=== PATIENT | female | born 1940 | race Caucasian/White ===

== ENCOUNTER → 2016-09-26 | Outpatient (CLI) | payer BC ==
[~2016-09-26] MED LIST: ASPI325T6 PO; ASPIRIN 81M81 MG/TA2 PO; CELEBREX 200MG200 MG PO; GLUCOPHAGE XR500 M1 PO; LIPITOR20 MG PO; NORCO 325 MG-7.1 TAB PO; NORVASC 5MG5 MG/TAB PO; PREMPRO 0.3 MG-1 TAB PO; PRILOSEC 20MG20 MG PO; PRINZIDE 25 MG-1 TAB PO; ROXICODONE 55 MG/TAB PO; SENOKOT S 50 MG1 TAB PO; TIMOPTIC 0.25%-10 OU
== END ==
LOC: SUN.DIA 13:19
DX: E11.65 Type 2 diabetes mellitus with hyperglycemia (principal); Z68.26 Body mass index [BMI] 26.0-26.9, adult; Z71.3 Dietary counseling and surveillance; E78.5 Hyperlipidemia, unspecified; I10 Essential (primary) hypertension

== ENCOUNTER → 2016-10-06 | Outpatient (CLI) | payer BC | LOC: MC.RAD 09:32 | DX: Z12.31 Encounter for screening mammogram for malignant neoplasm of breast (principal); Z80.3 Family history of malignant neoplasm of breast ==

== ENCOUNTER → 2016-12-20 | Outpatient (CLI) | payer BC | LOC: COL.RAD 11:09 | DX: M25.551 Pain in right hip (principal) | CPT/HCPCS: J3301; Q9967 ==

== ENCOUNTER 2017-02-27 15:17 | Inpatient (IN) | payer BC, MEDICARE ==
[~2017-02-27 15:17] MED LIST changes: -ASPI325T6 PO; -NORCO 325 MG-7.1 TAB PO; -ROXICODONE 55 MG/TAB PO; -SENOKOT S 50 MG1 TAB PO
[2017-03-27] VITALS (12 sets, daily range): BP systolic 111–160; BP diastolic 55–77; PULSE 65–95; TEMP 97.7–98.4
[2017-03-28] VITALS: BP 128/61; PULSE 82; TEMP 98.4
[2017-03-28 04:00] VITALS: BP 138/45; PULSE 85; TEMP 98.5
[2017-03-28 05:43] LABS: HEMATOCRIT 31.4 % (37.0-47.0); HEMOGLOBIN 10.6 g/dl (12.5-16.0)
[2017-03-28 07:25] VITALS: BP 133/70; PULSE 86; TEMP 98.2
[2017-03-28 11:30] VITALS: BP 119/55; PULSE 76; TEMP 97.8
[2017-03-28 16:47] VITALS: BP 141/57; PULSE 90; TEMP 97.9
[2017-03-28 21:20] VITALS: BP 136/64; PULSE 89; TEMP 97.8
[2017-03-29 01:14] VITALS: BP 145/56; PULSE 76; TEMP 97.6
[2017-03-29 04:52] VITALS: BP 114/89; PULSE 108; TEMP 100.7; TEMP 99.7
[2017-03-29 05:23] LABS: HEMATOCRIT 33.3 % (37.0-47.0); HEMOGLOBIN 11.3 g/dl (12.5-16.0)
[2017-03-29 07:13] VITALS: BP 112/45; PULSE 86; TEMP 98.4
[2017-03-29 11:54] VITALS: BP 101/44; PULSE 80; TEMP 97.9
[2017-03-29 16:20] VITALS: BP 101/45; PULSE 82; TEMP 97.8
[2017-03-29 20:20] VITALS: BP 141/59; PULSE 95; TEMP 98.3
[2017-03-30 00:53] VITALS: BP 147/55; PULSE 93; TEMP 97.9
[2017-03-30 03:24] VITALS: BP 140/52; PULSE 84; TEMP 97.7
[2017-03-30 06:41] LABS: HEMATOCRIT 29.4 % (37.0-47.0); HEMOGLOBIN 9.9 g/dl (12.5-16.0)
[2017-03-30] MEDS ORDERED: ASPI325T6 PO (06:46)
[2017-03-30] MEDS ORDERED: NORCO 325 MG-7.1 TAB PO (06:47)
[2017-03-30] MEDS ORDERED: SENOKOT S 50 MG1 TAB PO (06:47)
[2017-03-30] MEDS ORDERED: ROXICODONE 55 MG/TAB PO (06:47)
[2017-03-30 07:24] VITALS: BP 114/43; PULSE 81; TEMP 97.9
[2017-03-30 11:14] VITALS: BP 117/52; PULSE 87; TEMP 98
== END 2017-03-30 14:25 | disposition home or self-care (01) | DRG 470 ==
LOC: JCC 03-27 05:08
PROVIDERS: Orthopaedic Surgery
PROC: 0SR90JZ Replacement of Right Hip Joint with Synthetic Substitute, Open Approach (ICD-10-PCS; principal; 2017-03-27 07:30)
DX: M16.11 Unilateral primary osteoarthritis, right hip (principal); I10 Essential (primary) hypertension; E11.9 Type 2 diabetes mellitus without complications
CPT/HCPCS: A4315; A9284; C1713; C1776; J0690; J1815; J2250; J2270; J2405; J2704; J7030

== ENCOUNTER → 2017-03-13 | Outpatient (CLI) | payer BC ==
[~2017-03-13] MED LIST changes: +ASPI325T6 PO; +NORCO 325 MG-7.1 TAB PO; +ROXICODONE 55 MG/TAB PO; +SENOKOT S 50 MG1 TAB PO
== END ==
LOC: COL.LAB 13:41
DX: Z01.812 Encounter for preprocedural laboratory examination (principal)

== ENCOUNTER → 2017-09-26 | Outpatient (CLI) | payer BC | LOC: SUN.DIA 14:28 | DX: E11.9 Type 2 diabetes mellitus without complications (principal); E78.5 Hyperlipidemia, unspecified; I10 Essential (primary) hypertension; Z68.25 Body mass index [BMI] 25.0-25.9, adult; Z71.3 Dietary counseling and surveillance | CPT/HCPCS: G0108 ==

== ENCOUNTER → 2017-10-16 | Outpatient (CLI) | payer BC | LOC: SUN.DIA 09:47 | DX: E11.9 Type 2 diabetes mellitus without complications (principal); E78.5 Hyperlipidemia, unspecified; I10 Essential (primary) hypertension; Z68.25 Body mass index [BMI] 25.0-25.9, adult; Z71.3 Dietary counseling and surveillance | CPT/HCPCS: G0108 ==

== ENCOUNTER → 2017-10-30 | Outpatient (CLI) | payer BC | LOC: MC.RAD 10:33 | DX: Z12.31 Encounter for screening mammogram for malignant neoplasm of breast (principal) ==

== ENCOUNTER → 2017-11-13 | Outpatient (CLI) | payer BC | LOC: SUN.DIA 11:57 | DX: E11.9 Type 2 diabetes mellitus without complications (principal); E78.5 Hyperlipidemia, unspecified; I10 Essential (primary) hypertension; Z68.25 Body mass index [BMI] 25.0-25.9, adult; Z71.3 Dietary counseling and surveillance | CPT/HCPCS: G0108 ==

== ENCOUNTER → 2018-02-12 | Outpatient (CLI) | payer BC | LOC: SUN.DIA 14:57 | DX: E11.9 Type 2 diabetes mellitus without complications (principal); E78.5 Hyperlipidemia, unspecified; I10 Essential (primary) hypertension | CPT/HCPCS: G0108 ==

== ENCOUNTER → 2018-09-10 | Outpatient (CLI) | payer BC | LOC: SUN.DIA 13:16 | DX: E11.9 Type 2 diabetes mellitus without complications (principal); E78.5 Hyperlipidemia, unspecified; I10 Essential (primary) hypertension | CPT/HCPCS: G0108 ==

== ENCOUNTER → 2018-11-20 | Outpatient (CLI) | payer BC | LOC: MC.RAD 09:03 | DX: Z12.31 Encounter for screening mammogram for malignant neoplasm of breast (principal) ==

== ENCOUNTER → 2019-03-11 | Outpatient (CLI) | payer BC | LOC: DIA.ED 13:14 | DX: E11.9 Type 2 diabetes mellitus without complications (principal); E78.5 Hyperlipidemia, unspecified; I10 Essential (primary) hypertension | CPT/HCPCS: G0108 ==

== ENCOUNTER → 2019-09-09 | Outpatient (CLI) | payer BC | LOC: DIA.ED 12:38 | DX: E11.9 Type 2 diabetes mellitus without complications (principal); Z79.84 Long term (current) use of oral hypoglycemic drugs; E78.5 Hyperlipidemia, unspecified; I10 Essential (primary) hypertension | CPT/HCPCS: G0108 ==

== ENCOUNTER → 2020-02-03 | Outpatient (CLI) | payer BC | LOC: DIA.ED 10:26 | DX: E11.9 Type 2 diabetes mellitus without complications (principal); Z79.84 Long term (current) use of oral hypoglycemic drugs; E78.5 Hyperlipidemia, unspecified; I10 Essential (primary) hypertension | CPT/HCPCS: G0108 ==

== ENCOUNTER → 2020-08-03 | Outpatient (CLI) | payer BC | LOC: DIA.ED 12:29 | DX: E11.9 Type 2 diabetes mellitus without complications (principal); Z79.84 Long term (current) use of oral hypoglycemic drugs; E78.5 Hyperlipidemia, unspecified; I10 Essential (primary) hypertension | CPT/HCPCS: G0108 ==

== ENCOUNTER → 2020-10-28 | Outpatient (CLI) | payer BC | LOC: MC.RAD 09:54 | DX: Z12.31 Encounter for screening mammogram for malignant neoplasm of breast (principal) ==

== ENCOUNTER → 2021-02-01 | Outpatient (CLI) | payer BC | LOC: DIA.ED 10:57 | DX: E11.65 Type 2 diabetes mellitus with hyperglycemia (principal); Z79.84 Long term (current) use of oral hypoglycemic drugs; E78.5 Hyperlipidemia, unspecified; I10 Essential (primary) hypertension | CPT/HCPCS: G0108 ==

== ENCOUNTER → 2021-07-26 | Outpatient (CLI) | payer BC | LOC: DIA.ED 08:27 | DX: E11.65 Type 2 diabetes mellitus with hyperglycemia (principal); Z79.84 Long term (current) use of oral hypoglycemic drugs; E78.5 Hyperlipidemia, unspecified; I10 Essential (primary) hypertension | CPT/HCPCS: G0108 ==

== ENCOUNTER → 2022-01-24 | Outpatient (CLI) | payer BC | LOC: DIA.ED 08:38 | DX: E11.65 Type 2 diabetes mellitus with hyperglycemia (principal); Z79.84 Long term (current) use of oral hypoglycemic drugs; E78.5 Hyperlipidemia, unspecified; I10 Essential (primary) hypertension | CPT/HCPCS: G0108 ==

== ENCOUNTER → 2022-02-08 | Outpatient (CLI) | payer BC | LOC: MC.RAD 10:02 | DX: Z12.31 Encounter for screening mammogram for malignant neoplasm of breast (principal) ==

== ENCOUNTER → 2024-01-24 | Outpatient (CLI) | payer BC | LOC: DIA.ED 08:39 | DX: E11.9 Type 2 diabetes mellitus without complications (principal); Z79.84 Long term (current) use of oral hypoglycemic drugs; I10 Essential (primary) hypertension; E78.5 Hyperlipidemia, unspecified | CPT/HCPCS: G0108 ==

== ENCOUNTER 2024-05-12 18:19 | Emergency (ER) | payer BC ==
[~2024-05-12] VITALS: Ht 165.1 cm; Wt 60.3 kg
[2024-05-12] MEDS ORDERED: DOXYCYCLINE 10100 MG PO (19:01)
[2024-05-12] MEDS ORDERED: Doxycycline Monohydrate 100 MG CAP PO ONE (19:15)
[2024-05-12 19:35] VITALS: BP 183/91; PULSE 85; TEMP 98.7
== END 2024-05-12 19:35 | disposition home or self-care (01) ==
LOC: COL.ER 18:19
DX: L03.012 Cellulitis of left finger (principal); E11.9 Type 2 diabetes mellitus without complications; Z79.84 Long term (current) use of oral hypoglycemic drugs